=== PATIENT | male | born 1955 | race Caucasian/White ===

== ENCOUNTER 2023-10-27 17:03 | Emergency (ER) | payer MEDICARE, OTHER, SELFPAY ==
[2023-10-27 17:05] VITALS: BP 159/94
--- NOTE | 2023-10-27 18:31 | ED.GENMED ---
History of Present Illness
General
Chief Complaint: Abdominal Symptoms
Source: patient
Exam Limitations: none
Time Seen by Provider: 10/27/23 17:40
Nursing documentation reviewed up to this point in time: agreed with
Travel History
Have you had any contact with someone who has COVID-19?: No
Do you have any symptoms of coronavirus? Fever > 100 degrees, chills, cough, shortness of breath, sore throat, loss of taste or smell, muscle aches, or headache?: No
History of Present Illness
History of Present Illness:
The patient is a 67-year-old man who reports that while he was walking his dog, he noticed a warm lump in his right groin area. Patient reports he now feels completely better. He denies any burning when he urinates. He denies abdominal pain,
nausea and vomiting.
Past History
Past History
ED Past Medical History: CAD (Coronary spasm)
ED Past Surgical History: Urological
Social History
Tobacco: Former smoker
Alcohol: Occasional
Drug: None
Living: with family
Employment: Other
Family History
Family History: Other
Review of Systems
Review of Systems
Allergies reviewed?: Yes
All Other Systems: ROS reviewed and negative except as documented in HPI and ROS
Constitutional: Reports no symptoms
EENT: Reports no symptoms
Respiratory: Reports no symptoms
Cardiac: Reports no symptoms
ABD/GI: Reports abdominal pain
: Reports no symptoms
Musculoskeletal: Reports no symptoms
Skin: Reports no symptoms
Neurological: Reports no symptoms
Endocrine: Reports no symptoms
Hematologic/Lymphatic: Reports no symptoms
Psychiatric: Reports no symptoms
Phy Exam
Physical Exam
Physical Exam:
Physical Exam
General: no apparent distress, not acutely ill
Neck: supple. no meningeal signs. normal psoterior pharynx
Heart: s1/s2 regular rate and rhythm, no murmur. equal radial pulses.
Lungs: no acute respiratory distress. clear bilaterally
Abdomen: Soft throughout. No palpable masses. No palpable hernia. No lymphadenopathy. No pulsatile mass
Neuro: alert and oriented. no focal neurological deficits
Skin: no rash
Psychiatric: well kept. interactive and cooperative
Extremities: no edema. no calf tenderness. negative homans. good distal pulses
Course
Vital Signs
Initial and Last Documented VS:
Initial Vital Signs
Temp Pulse Resp BP Pulse Ox
98.4 F 73 18 159/94 98
10/27/23 17:05 10/27/23 17:05 10/27/23 17:05 10/27/23 17:05 10/27/23 17:05
Last Documented Vital Signs
Temp Pulse Resp BP Pulse Ox
98.4 F 73 18 159/94 98
10/27/23 17:05 10/27/23 17:05 10/27/23 17:05 10/27/23 17:05 10/27/23 17:05
MDM/Problems Addressed
Differential Diagnosis Includes:
Right reducible inguinal hernia, right groin lymphadenopathy, abscess
MDM/Problems Addressed:
Patient presents with report of an acute painful and warm lump in his right groin that is now gone completely
Acute Exacerbation and/or Progression of Chronic Illness: HTN
*Pulse Oximetry
Patient hypoxic: no
*EKG
Interpreted by ED Provider?: NA
*[employer] Creative [employer] Interpretation
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
*Critical Care Note
Total Time (30-74mins, 75-104mins- exclusive of procedures): Not Applicable
Patient Management
Social determinants of health affecting care: Living situation and Strong social support
Escalation/DeEscalation of care consider admission/obs:
Patient remains very well and comfortable appearing. He reports the lump is gone and I cannot feel it. Clinically, this is suspicious of a reducible right inguinal hernia. I do not feel any lymphadenopathy. He has no abdominal tenderness
whatsoever.
ED Attending Note
-
Portions of this chart may have been created with voice recognition software.� Occasional wrong word or��sound alike� substitutions may have occurred due to the inherent limitations of voice recognition software.
Discharge Plan
Departure
Patient Disposition: Home (Routine Discharge)
Date of Disposition: 10/27/23
Time of Disposition: 18:13
Patient with high blood pressure during this ER visit?: Yes
Condition: Good
Covid-19: Not Applicable
Discharge Problem:
Hernia, inguinal, right
Instructions: Groin hernias, BLOOD PRESSURE
Prescriptions:
No Action
diltiazem HCl [DILT-XR] 240 MG capsule,ext.rel 24h degradable
240 mg PO .IN THE AM
triamterene-hydrochlorothiazid 1 CAPSULE capsule
1 cap PO .IN THE AM
Patient Comments:
37.5/25mg
ibuprofen [Advil] 200 MG tablet
200 - 400 mg PO PRN PRN (Reason: pain)
melatonin 5 MG tablet
5 mg PO HS PRN (Reason: for sleep)
Terazosin HCl
4 mg PO HS
levofloxacin 250 MG tablet
250 mg PO DAILY Qty: 7 0RF
ibuprofen 600 mg tablet
600 mg PO Q6H PRN (Reason: Pain) Qty: 20 0RF
Referrals:
Peng Zayas MD [Active] - (for any persistent pain or protruding of hernia)
Sorin Holbrook MD [Family Provider] -
Activity Restrictions/Additional Instructions:
Try not to lift anything heavy, as this will cause the hernia to pop out. For persistent pain, please call general surgery to schedule an appointment
Interventions
Interventions:
*Risk Screen - Suicide Last Done: 10/27/23 17:05
*General Assessment Last Done: 10/27/23 17:05
*Neglect/Abuse Screening Last Done: 10/27/23 17:05
*ED COVID-19 Vaccine History Last Done: 10/27/23 17:05
*Nursing Disposition Last Done: 10/27/23 18:33
Discharge Date and Time
Print Language: NEPALESE
== END 2023-10-27 18:35 | disposition home or self-care (01) ==
LOC: EMR 17:03
PROVIDERS: EMERGENCY PHYSICIAN Emergency Medicine; FAMILY PHYSICIAN Internal Medicine
DX: K40.90 Unilateral inguinal hernia, without obstruction or gangrene, not specified as recurrent (principal); Z87.891 Personal history of nicotine dependence; R03.0 Elevated blood-pressure reading, without diagnosis of hypertension
CPT/HCPCS: 99282